=== PATIENT | male | born 1935 | race Caucasian/White ===

== ENCOUNTER 2019-06-11 11:03 | Day surgery (SDC) | payer MEDICARE, OTHER ==
[~2019-06-11] VITALS: Ht 182.9 cm; Wt 69.1 kg
[2019-06-11] MEDS ORDERED: LEVO150T8 PO (11:09)
[2019-06-11] MEDS ORDERED: METO-395 PO (11:09)
[2019-06-11] MEDS ORDERED: MEMA5TAB PO (11:09)
[2019-06-11] MEDS ORDERED: ASPI-611 PO (11:09)
[2019-06-11] MEDS ORDERED: DONE5TAB7 PO (11:09)
[2019-06-11 11:13] VITALS: BP 151/76
[2019-06-11] MEDS ORDERED: normal saline 1,000 ML IV SCH (11:30)
[2019-06-11] MEDS ORDERED: diphenhydrAMINE 25mg capsule PO PRN (11:30)
[2019-06-11 11:35] LABS: BASOPHILS % (AUTO) 0.7 % (0-1); EOSINOPHILS # (AUTO) 0.1 X10'3 (0-0.9); EOSINOPHILS % (AUTO) 1.8 % (0-6); HEMATOCRIT 42.8 % (42.0-52.0); HEMOGLOBIN 14.5 g/dl (14.0-17.9); LYMPHOCYTES # (AUTO) 1.5 X10'3 (1.1-4.8); LYMPHOCYTES % (AUTO) 20.6 % (21-51); MEAN CORPUSCULAR HGB CONC 33.8 g/dL (33.0-36.5); MEAN CORPUSCULAR VOLUME 94.8 FL (78-98); MEAN PLATELET VOLUME 8.1 FL (7.4-10.4); MONOCYTES # (AUTO) 0.6 X10'3 (0-0.9); MONOCYTES % (AUTO) 7.9 % (2-12); NEUTROPHILS # (AUTO) 4.9 X10'3 (1.8-7.7); PLATELET COUNT 180 X10'3 (140-440); RED BLOOD COUNT 4.52 X10'6 (4.70-6.10); RED CELL DISTRIBUTION WIDTH 13.2 % (11.5-14.5)
[2019-06-11 11:48] LABS: ALBUMIN 3.3 G/DL (3.4-5.0); ANION GAP 9 (8-16); BLOOD UREA NITROGEN 14 MG/DL (7-18); BUN/CREATININE RATIO 19.2 (5.4-32.0); CALCIUM 8.8 MG/DL (8.5-10.1); CHLORIDE 107 MMOL/L (99-107); CREATININE 0.73 MG/DL (0.60-1.10); GLUCOSE 86 MG/DL (70-104); MAGNESIUM 1.9 MG/DL (1.5-2.4); POTASSIUM 3.8 MMOL/L (3.5-5.1); SODIUM 142 MMOL/L (135-145); TOTAL CARBON DIOXIDE 25.8 MMOL/L (24-32); eGFR > 90 ML/MIN
[2019-06-11] MEDS ORDERED: midazolam 2 mg/2 ml injection ONE (12:26)
[2019-06-11] MEDS ORDERED: fentaNYL/PF 50MCG/1 ML 2ML syringe ONE (12:26)
[2019-06-11] MEDS ORDERED: ceFAZolin 1000mg inj ONE (12:26)
[2019-06-11] MEDS ORDERED: LIDOcaine 1% w/EPI 1:100,000 30ml vial (MDV) ONE (12:26)
[2019-06-11] MEDS ORDERED: ceFAZolin 1GM/D5W- ADD-VANTAGE 50 ML IV ONE (12:27)
[2019-06-11] MEDS ORDERED: vancomycin 1,000mg inj ONE (12:51)
[2019-06-11 13:38] VITALS: BP 138/67
[2019-06-11 14:00] VITALS: BP 131/65
[2019-06-11 14:15] VITALS: BP 137/68
[2019-06-11 14:30] VITALS: BP 139/70
== END 2019-06-11 15:00 | disposition home or self-care (01) ==
LOC: SSTAY O 11:03
PROVIDERS: ATTEND Internal Medicine Cardiovascular Disease
DX: Z45.02 Encounter for adjustment and management of automatic implantable cardiac defibrillator (principal); I42.0 Dilated cardiomyopathy; I44.7 Left bundle-branch block, unspecified; G20 Parkinson's disease; E03.9 Hypothyroidism, unspecified; Z79.82 Long term (current) use of aspirin; Z79.899 Other long term (current) drug therapy; Z98.890 Other specified postprocedural states
CPT/HCPCS: 33263; 36415; 80048; 83735; 85025; 85610; 99152; 99153; C1721; J0690; J2250; J3010; J3370; J7030; Q0163; 33228; A4620; C1785